=== PATIENT | male | born 1970 | race Caucasian/White ===

== ENCOUNTER 2019-03-04 17:25 | Emergency (ER) | payer BC ==
[2019-03-04] MEDS ORDERED: HYDROCODONE/APAP 10/325 TAB ONE (18:24)
[2019-03-04] MEDS ORDERED: KETOROLAC 30 MG/ML INJ ONE (18:24)
--- NOTE | 2019-03-04 18:56 | EDPHYS ---
Physician Documentation [facility] Name: Osito Guadarrama Age: 48 yrs Sex: Male : 1970 Arrival Date: 03/04/2019 Time: 17:29 Bed 28 Private MD: ED Physician Tio Mon HPI: 03/04 18:10 This 48 yrs old Male presents to ER via Wheelchair with complaints of Knee jr8 Pain. 18:10 The patient presents with pain, that is acute, tenderness. The complaints affect the jr8 left knee. Context: The problem was sustained at work, resulted from a repetitive motion. Onset: The symptoms/episode began/occurred acutely, today. Modifying factors: The symptoms are alleviated by nothing. the symptoms are aggravated by movement, weight bearing, bending knee. Associated signs and symptoms: The patient has no apparent associated signs or symptoms. Severity of symptoms: At their worst the symptoms were moderate, in the emergency department the symptoms are unchanged. The patient has not experienced similar symptoms in the past. The patient has not recently seen a physician. Patient stated that he had been having pain to left knee. On/off his knees for work quite a bit. Stated that today was going from kneeling to standing position when he heard a pop. Stated that since then the pain has been increasingly getting worse and is having a hard time extending knee . Historical: - Allergies: 17:39 No Known Allergies; ss - Home Meds: 17:39 Hydrochlorothiazide Oral [Active]; ss - PMHx: 17:39 Hypertension; ss - PSHx: 17:39 None; ss - Immunization history:: Adult Immunizations unknown. - Social history:: Smoking status: Patient uses tobacco products, smokes one-half pack cigarettes per day. - Ebola Screening: : Patient denies exposure to infectious person Patient denies travel to an Ebola-affected area in the 21 days before illness onset. ROS: 18:10 Eyes: Negative for injury, pain, redness, and discharge, ENT: Negative for injury, jr8 pain, and discharge, Neck: Negative for injury, pain, and swelling, Cardiovascular: Negative for chest pain, palpitations, and edema, Respiratory: Negative for shortness of breath, cough, wheezing, and pleuritic chest pain, Abdomen/GI: Negative for abdominal pain, nausea, vomiting, diarrhea, and constipation, Back: Negative for injury and pain, Skin: Negative for injury, rash, and discoloration, Neuro: Negative for headache, weakness, numbness, tingling, and seizure. 18:10 MS/extremity: Positive for pain, tenderness, of the left knee. Exam: 18:10 Eyes: Pupils equal round and reactive to light, extra-ocular motions intact. Lids and jr8 lashes normal. Conjunctiva and sclera are non-icteric and not injected. Cornea within normal limits. Periorbital areas with no swelling, redness, or edema. ENT: Nares patent. No nasal discharge, no septal abnormalities noted. Tympanic membranes are normal and external auditory canals are clear. Oropharynx with no redness, swelling, or masses, exudates, or evidence of obstruction, uvula midline. Mucous membranes moist. Neck: Trachea midline, no thyromegaly or masses palpated, and no cervical lymphadenopathy. Supple, full range of motion without nuchal rigidity, or vertebral point tenderness. No Meningismus. Cardiovascular: Regular rate and rhythm with a normal S1 and S2. No gallops, murmurs, or rubs. Normal PMI, no JVD. No pulse deficits. Respiratory: Lungs have equal breath sounds bilaterally, clear to auscultation and percussion. No rales, rhonchi or wheezes noted. No increased work of breathing, no retractions or nasal flaring. Abdomen/GI: Soft, non-tender, with normal bowel sounds. No distension or tympany. No guarding or rebound. No evidence of tenderness throughout. Back: No spinal tenderness. No costovertebral tenderness. Full range of motion. Skin: Warm, dry with normal turgor. Normal color with no rashes, no lesions, and no evidence of cellulitis. Neuro: Awake and alert, GCS 15, oriented to person, place, time, and situation. Cranial nerves II-XII grossly intact. Motor strength 5/5 in all extremities. Sensory grossly intact. Cerebellar exam normal. Normal gait. 18:10 Musculoskeletal/extremity: Extremities: noted in the left knee: pain, tenderness, ROM: full active range of motion, full passive range of motion, limited active range of motion due to pain, limited passive range of motion due to pain, Circulation is intact in all extremities. Sensation intact. No obvious deformity, swelling, or external signs of trauma . Vital Signs: 17:39 BP 152 / 102; Pulse 63; Resp 16; Temp 99.1(TE); Pulse Ox 98% on R/A; Weight 70.31 kg ss (R); Height 6 ft. 0 in. (182.88 cm); Pain 7/10; 19:14 BP 148 / 94 RA; Pulse 67; Resp 15 S; Pulse Ox 99% on R/A; rv 17:39 Body Mass Index 21.02 (70.31 kg, 182.88 cm) Procedures: 18:54 Splinting: Splint applied to left knee using ezekiel wrap, applied by nurse. Examined by jr8 me, post splint application: neurovascular intact, 2+ distal pulses palpable, brisk capillary refill noted, Patient tolerated well. Crutch training provided to patient and/or family. Return demonstration given. MDM: 17:40 Patient medically screened. jr8 18:54 Data reviewed: vital signs, nurses notes, radiologic studies, plain films, and as a jr8 result, I will discharge patient. Data interpreted: Pulse oximetry: on room air is 98 %. Interpretation: normal. Counseling: I had a detailed discussion with the patient and/or guardian regarding: the historical points, exam findings, and any diagnostic results supporting the discharge/admit diagnosis, radiology results, the need for outpatient follow up, a orthopedic surgeon, to return to the emergency department if symptoms worsen or persist or if there are any questions or concerns that arise at home. 03/04 18:07 Order name: XRAY Knee LEFT 3 view [facility] 03/04 18:53 Order name: Ezekiel wrap-joint; Complete Time: 19:03 8 03/04 18:53 Order name: Crutches; Complete Time: 19:03 jr8 Administered Medications: 18:15 Drug: [place] 10 mg-325 mg 1 tabs Route: PO; rv 19:13 Follow up: Response: Pain is decreased rv 18:15 Drug: TORadol - Ketorolac 15 mg Route: IM; Site: left deltoid; rv 19:13 Follow up: Response: Pain is decreased rv Disposition: 03/04/19 18:55 Discharged to Home. Impression: Pain in left knee. - Condition is Stable. - Discharge Instructions: Joint Pain, Knee Pain. - Prescriptions for Mobic 7.5 mg Oral Tablet - take 1 tablet by ORAL route once daily take with food; 20 tablet. Tramadol 50 mg Oral Tablet - take 1 tablet by ORAL route every 8 hours as needed; 12 tablet. - Medication Reconciliation Form, Thank You Letter, Antibiotic Education, Prescription Opioid Use form. - Follow up: Dexter Stein MD; When: 5 - 6 days; Reason: Recheck today's complaints, Continuance of care, Re-evaluation by your physician. - Problem is new. - Symptoms have improved. Addendum: 03/06/2019 08:08 Co-signature as Attending Physician, Tio Mon MD Available for consultation at p s1 all times. . Signatures: Dispatcher [employer] EDMS Jocelin Cagle RN RN ss Everett Swanson PA PA jr8 Tio Mon MD MD ps1 Jose Enrique Bloom RN RN rv Corrections: (The following items were deleted from the chart) 03/04 18:13 18:10 Musculoskeletal/extremity: Extremities: noted in the left knee: pain, tenderness, jr8 ROM: full active range of motion, full passive range of motion, limited active range of motion due to pain, limited passive range of motion due to pain, Circulation is intact in all extremities. Sensation intact. jr8 19:15 18:55 03/04/2019 18:55 Discharged to Home. Impression: Pain in left knee. Condition is rv Stable. Forms are Medication Reconciliation Form, Thank You Letter, Antibiotic Education, Prescription Opioid Use. Follow up: Dexter Stein; When: 5 - 6 days; Reason: Recheck today's complaints, Continuance of care, Re-evaluation by your physician. Problem is new. Symptoms have improved. jr8
--- NOTE | 2019-03-04 18:56 | ER ---
Nurse's Notes [facility] Name: Osito Guadarrama Age: 48 yrs Sex: Male : 1970 Arrival Date: 03/04/2019 Time: 17:29 Bed 28 Private MD: Diagnosis: Pain in left knee Presentation: 03/04 17:37 Presenting complaint: Patient states: "I squatted down and my knee popped. It happened ss three times, starting at noon. And the last time it began hurting more to where I can't straighten it.". Transition of care: patient was not received from another setting of care. Onset of symptoms was March 04, 2019. Risk Assessment: Do you want to hurt yourself or someone else? Patient reports no desire to harm self or others. Initial Sepsis Screen: Does the patient meet any 2 criteria? No. Patient's initial sepsis screen is negative. Does the patient have a suspected source of infection? No. Patient's initial sepsis screen is negative. Care prior to arrival: None. 17:37 Method Of Arrival: Wheelchair ss 17:37 Acuity: ONEYDA 4 ss Historical: - Allergies: 17:39 No Known Allergies; ss - Home Meds: 17:39 Hydrochlorothiazide Oral [Active]; ss - PMHx: 17:39 Hypertension; ss - PSHx: 17:39 None; ss - Immunization history:: Adult Immunizations unknown. - Social history:: Smoking status: Patient uses tobacco products, smokes one-half pack cigarettes per day. - Ebola Screening: : Patient denies exposure to infectious person Patient denies travel to an Ebola-affected area in the 21 days before illness onset. Screenin:32 Abuse screen: Denies threats or abuse. Denies injuries from another. Nutritional rv screening: No deficits noted. Tuberculosis screening: No symptoms or risk factors identified. Fall Risk None identified. Assessment: 18:30 General: Appears in no apparent distress. uncomfortable, Behavior is calm, cooperative. rv Pain: Complains of pain in left knee Pain currently is 10 out of 10 on a pain scale. Neuro: Level of Consciousness is awake, alert, obeys commands, Oriented to person, place, time, situation. Cardiovascular: Capillary refill < 3 seconds. Respiratory: Airway is patent. GI: No signs and/or symptoms were reported involving the gastrointestinal system. : No signs and/or symptoms were reported regarding the genitourinary system. EENT: No signs and/or symptoms were reported regarding the EENT system. Derm: Skin is intact. Musculoskeletal: Reports pain in left knee. Vital Signs: 17:39 BP 152 / 102; Pulse 63; Resp 16; Temp 99.1(TE); Pulse Ox 98% on R/A; Weight 70.31 kg ss (R); Height 6 ft. 0 in. (182.88 cm); Pain 7/10; 19:14 BP 148 / 94 RA; Pulse 67; Resp 15 S; Pulse Ox 99% on R/A; rv 17:39 Body Mass Index 21.02 (70.31 kg, 182.88 cm) ED Course: 17:29 Patient arrived in ED. mr 17:38 Triage completed. ss 17:39 Arm band placed on right wrist. ss 17:40 Everett Swanson PA is PHCP. jr8 17:40 Tio Mon MD is Attending Physician. jr8 17:45 Jose Enrique Bloom, HEENA is Primary Nurse. rv 18:33 Patient has correct armband on for positive identification. Placed in gown. Bed in low rv position. Call light in reach. Side rails up X2. Pulse ox on. NIBP on. 18:55 Dexter Stein MD is Referral Physician. jr8 19:09 XRAY Knee LEFT 3 view In Process Unspecified. EDMS 19:13 Patient did not have IV access during this emergency room visit. Ezekiel wrap to left knee. rv 19:14 No provider procedures requiring assistance completed. rv Administered Medications: 18:15 Drug: [place] 10 mg-325 mg 1 tabs Route: PO; rv 19:13 Follow up: Response: Pain is decreased rv 18:15 Drug: TORadol - Ketorolac 15 mg Route: IM; Site: left deltoid; rv 19:13 Follow up: Response: Pain is decreased rv Outcome: 18:55 Discharge ordered by . jr8 19:14 Discharged to home with crutches. rv 19:14 Condition: good 19:14 Discharge instructions given to patient, Instructed on discharge instructions, follow up and referral plans. medication usage, Demonstrated understanding of instructions, follow-up care, medications, Prescriptions given X 2. 19:15 Patient left the ED. rv Signatures: Dispatcher [employer] VIOLETA LukeKaylah Shelby, RN RN ss Everett Swanson PA PA 8 Jose Enrique Bloom RN RN rv
--- NOTE | 2019-03-04 19:15 | RAD REPORT ---
EXAM DESCRIPTION: RAD - Knee Left 3 View - 03/04/2019 7:08 pm CLINICAL HISTORY: Left knee pain status post injury FINDINGS: No fracture or dislocation is seen.
== END 2019-03-04 19:15 | disposition home or self-care (01) ==
LOC: ER 17:25
DX: M25.562 Pain in left knee (principal); I10 Essential (primary) hypertension; Z79.899 Other long term (current) drug therapy; F17.210 Nicotine dependence, cigarettes, uncomplicated
CPT/HCPCS: 96372; 99284

== ENCOUNTER 2024-10-02 12:12 | Emergency (ER) | payer BC, SELFPAY ==
--- OUTSIDE RECORDS SUMMARY | 2024-10-02 12:15 | XMS REPORT | Continuity of Care Document ---
Author Name Unknown Address [address] [place] [address] [employer] Address [address] [place] [address] Care Team Providers Care Second Helper Name Role Phone Unavailable Unavailable Unavailable
--- NOTE | 2024-10-02 12:33 | EDPHYS ---
Physician Documentation [facility] Name: Osito Guadarrama Age: 54 yrs Sex: Male : 1970 Arrival Date: 10/02/2024 Time: 12:12 Bed IW1 Private MD: ED Physician Carolina Merritt HPI: 10/02 12:35 This 54 yrs old Male presents to ER via Ambulatory with complaints of Eye gb1 Problem - right, Facial Swelling - right. 12:37 54-year-old male with redness and irritation to the right lower lid. 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 He denies any known foreign body. He does not wear contact lenses.. Historical: - Allergies: 12:35 No Known Allergies; ss - PMHx: 12:35 Hypertension; ss - Immunization history:: Client reports receiving the 2nd dose of the Covid vaccine. - Infectious Disease History:: Denies. - Social history:: Smoking status: Patient reports the use of cigarette tobacco products, smokes one pack cigarettes per day. Exam: 12:35 Visual Acuity: Visual acuity is within normal limits. gb1 12:35 Constitutional: This is a well developed, well nourished patient who is awake, alert, and in no acute distress. Head/Face: Normocephalic, atraumatic. Eyes: Pupils equal round and reactive to light, extra-ocular motions intact. Conjunctiva and sclera are non-icteric and not injected. Cornea within normal limits. Patient has a right lower lid internal hordeolum, there is erythema and edema of the right infra orbit as well. Mild tenderness to the area in the right infraorbital ENT: Nares patent. No nasal discharge, no septal abnormalities noted. Tympanic membranes are normal and external auditory canals are clear. Oropharynx with no redness, swelling, or masses, exudates, or evidence of obstruction, uvula midline. Mucous membranes moist. Neck: Trachea midline, no thyromegaly or masses palpated, and no cervical lymphadenopathy. Supple, full range of motion without nuchal rigidity, or vertebral point tenderness. No Meningismus. Cardiovascular: Regular rate and rhythm with a normal S1 and S2. No gallops, murmurs, or rubs. Normal PMI, no JVD. No pulse deficits. Respiratory: Lungs have equal breath sounds bilaterally, clear to auscultation and percussion. No rales, rhonchi or wheezes noted. No increased work of breathing, no retractions or nasal flaring. Vital Signs: 12:33 BP 119 / 78; Pulse 68; Resp 15; Temp 97.8(TE); Pulse Ox 98% on R/A; Weight 63.5 kg; ss Height 6 ft. 0 in. ; Pain 3/10; 12:33 Body Mass Index 18.99 (63.50 kg, 182.88 cm) 12:33 Pain Scale: Adult ss MDM: 12:23 Medical Screening Exam initiated gb1 12:35 Data reviewed: vital signs, nurses notes. ED course: 54-year-old male with a right gb1 internal lower lid hordeolum. There is no signs of conjunctivitis or foreign body in the eye. There is no scleral icterus or signs of trauma to the eye itself. The erythema in the infraorbital on the right is likely secondary to the patient rubbing the eye due to discomfort.. Administered Medications: No medications were administered Disposition Summary: 10/02/24 12:32 Discharge Ordered Notes: Location: Home gb1 Problem: new gb1 Symptoms: have worsened gb1 Condition: Stable gb1 Diagnosis - Hordeolum externum right lower eyelid gb1 Followup: gb1 - With: Private Physician - When: - Reason: Recheck today's complaints Discharge Instructions: - Discharge Summary Sheet gb1 - [facility] gb1 Forms: - Medication Reconciliation Form gb1 - Antibiotic Education gb1 - Prescription Opioid Use gb1 - Patient Portal Instructions gb1 - Leadership Thank You Letter gb1 Prescriptions: - Erythromycin 5 mg/gram (0.5 %) Ophthalmic ointment - apply 1 centimeter OPHTHALMIC route 2-3 times daily for 7 days; 3.5 gram tube; gb1 Refills: 0, Product Selection Permitted Signatures: Jocelin Espinosa RN RN Carolina Merritt MD MD gb1
--- NOTE | 2024-10-02 12:38 | ER ---
Nurse's Notes [facility] Name: Osito Guadarrama Age: 54 yrs Sex: Male : 1970 Arrival Date: 10/02/2024 Time: 12:12 Bed IW1 Private MD: Diagnosis: Hordeolum externum right lower eyelid Presentation: 10/02 12:33 Chief complaint: Patient states: "I think I have something in my eye." Pt reports that ss he was working on a ceiling when he felt that something may have gotten in his eyelid. C/o pain, redness and swelling to R lower eyelid since . Coronavirus screen: Client denies travel out of the [place] in the last 14 days. Ebola Screen: Patient denies exposure to infectious person. Patient denies travel to an Ebola-affected area in the 21 days before illness onset. Initial Sepsis Screen: Does the patient meet any 2 criteria? No. Patient's initial sepsis screen is negative. Does the patient have a suspected source of infection? No. Patient's initial sepsis screen is negative. Risk Assessment: Do you want to hurt yourself or someone else? Patient reports no desire to harm self or others. Onset of symptoms was September 28, 2024. 12:33 Method Of Arrival: Ambulatory ss 12:33 Acuity: ONEYDA 4 ss Historical: - Allergies: 12:35 No Known Allergies; ss - PMHx: 12:35 Hypertension; ss - Immunization history:: Client reports receiving the 2nd dose of the Covid vaccine. - Infectious Disease History:: Denies. - Social history:: Smoking status: Patient reports the use of cigarette tobacco products, smokes one pack cigarettes per day. Screenin:37 Abuse screen: Denies threats or abuse. Denies injuries from another. Nutritional ss screening: No deficits noted. Tuberculosis screening: Never had TB. Vital Signs: 12:33 BP 119 / 78; Pulse 68; Resp 15; Temp 97.8(TE); Pulse Ox 98% on R/A; Weight 63.5 kg; ss Height 6 ft. 0 in. ; Pain 3/10; 12:33 Body Mass Index 18.99 (63.50 kg, 182.88 cm) ss 12:33 Pain Scale: Adult ss ED Course: 12:14 Patient arrived in ED. im 12:19 Shaina, Carolina, MD is Attending Physician. gb1 12:35 Triage completed. ss 12:35 Arm band placed on right wrist. ss 12:37 Patient has correct armband on for positive identification. ss 12:37 No provider procedures requiring assistance completed. Patient did not have IV access ss during this emergency room visit. Administered Medications: No medications were administered Outcome: 12:32 Discharge ordered by . gb1 12:37 Discharged to home ambulatory, ss 12:37 Condition: good 12:37 Discharge instructions given to patient, Instructed on discharge instructions, follow up and referral plans. medication usage, Demonstrated understanding of instructions, follow-up care, medications, Prescriptions given X 1, 12:38 Patient left the ED. ss Signatures: Jocelin Espinosa, RN RN Corry Rosado Carolina Merritt MD MD gb1
[2024-10-02 12:56] VITALS: BP 119/78; TEMP 97.8; O2SAT 98
== END 2024-10-02 12:38 | disposition home or self-care (01) ==
LOC: ER 12:12
DX: H00.012 Hordeolum externum right lower eyelid (principal)
CPT/HCPCS: 99283